=== PATIENT | male | born 1945 | race Caucasian/White ===

== ENCOUNTER → 2019-04-10 | Outpatient (CLI) | payer MEDICARE ==
[~2019-04-10] MED LIST: COREG25 MG PO; NKHM; NORVASC5 MG PO
== END | disposition home or self-care (01) ==
LOC: LAB 10:03
DX: G31.84 Mild cognitive impairment of uncertain or unknown etiology (principal)

== ENCOUNTER 2020-12-18 22:10 | Emergency (ER) | payer MEDICARE | END 2020-12-18 23:02 | disposition home or self-care (01) | LOC: ED 22:10 | DX: S61.511A Laceration without foreign body of right wrist, initial encounter (principal); S51.011A Laceration without foreign body of right elbow, initial encounter; Z88.2 Allergy status to sulfonamides; Z79.899 Other long term (current) drug therapy; Z98.890 Other specified postprocedural states; W19.XXXA Unspecified fall, initial encounter; Y93.89 Activity, other specified; Y92.89 Other specified places as the place of occurrence of the external cause; Y99.8 Other external cause status ==